=== PATIENT | female | born 1990 | race Caucasian/White ===

== ENCOUNTER → 2017-05-07 | Day surgery (SDC) | payer BC ==
[~2017-05-07] MED LIST: BUPIVACAINE/EPINEPHRINE 0.25% PF 10 ML VIAL ONE; LACTATED RINGER'S 1,000 ML BAG IV ONE; NEOMYCIN/POLYMYXIN/BACITRACIN OINT 15 GM TUBE ONE; PROPOFOL 100 MG/10 ML INJ IV ONE; ceFAZolin INJ 1,000 MG VIAL ONE
--- NOTE | 2017-05-07 12:43 | TN ---
cc: DANGELO MELISSA M.D. DATE OF SURGERY 05/07/2017 PREOPERATIVE DIAGNOSES A 1-cm left posterior auricular scalp mass. POSTOPERATIVE DIAGNOSES 1. A 1-cm left posterior auricular scalp mass. 2. 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 PROCEDURE PERFORMED 1. Attempted excision left posterior auricular scalp mass. 2. Biopsy of probable osteoma. SURGEON Dangelo Melissa MD [employer] Nadir Berger [id number] ANESTHESIA General LMA. COMPLICATIONS None. INDICATION FOR PROCEDURE Ms. Ruiz is a pleasant 26-year-old female who noted a mass in her posterior auricular area in her scalp about two months ago. She was referred for surgical evaluation. On physical exam she had a firm mass in the posterior auricular area. It was difficult to discern if this was a subcutaneous mass like a pilar cysts or something off of the skull. She was offered a formal exploration and excision. The risks and benefits of the procedure were discussed with her and her and they were agreeable. DETAILS The patient was identified, brought to the operating, placed supine on the operating table. After adequate general anesthesia was achieved with LMA the posterior auricular area was shaved, prepped and draped in a standard surgical fashion. 0.25% Marcaine was injected in the skin and subcutaneous tissue around the mass. A transverse incision was made. Dissection was carried down through the subcutaneous tissue and it was obvious the mass did not originate from subcutaneous tissue. We then dissected down deeper where the mass appeared to originate from the skull. The galea was incised and the skull was visualized. 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 We then took the rongeur and curettes and straight the mass down somewhat and sent the pieces for biopsy. We did not completely flatten out the mass due to the fact that the rongeurs and curettes were not able to do this completely. We did smooth over the mass significantly from what it appeared preoperatively. At this point I felt comfortable with the biopsy of the mass and its physical appearance that this was an osteoma and likely benign. We therefore irrigated with normal saline solution. We closed the galea back with a 3-0 Vicryl and then closed the incision with a 3-0 Prolene due to the patient's history of keloid formation. The patient tolerated the procedure well. She was awakened and brought to Recovery in stable condition. MD CRYSTAL Berg /12:32 PM /12:38 PM
== END | disposition home or self-care (01) ==
LOC: ESDC 09:41
PROVIDERS: ATTEND Surgery Trauma Surgery
DX: D16.4 Benign neoplasm of bones of skull and face (principal)
CPT/HCPCS: 00300; 21013; 88305; 88311; J0690; J3010; J7120